=== PATIENT | female | born 1990 | race African-American/Black ===

== ENCOUNTER 2016-10-27 19:34 | Inpatient (IN) | payer MEDICAID ==
[~2016-10-27] VITALS: Ht 180.3 cm; Wt 114.0 kg
[~2016-10-27 19:34] MED LIST: NOCURR; PREN1TAB80 PO
[2016-10-27] MEDS ORDERED: MORPHINE SULFATE 4 MG/ML SYRINGE IVP ONE (19:45)
[2016-10-27] MEDS ORDERED: ONDANSETRON HCL 4 MG/2 ML VIAL IVP ONE (19:45)
[2016-10-27] MEDS ORDERED: ACETAMINOPHEN 325 MG TABLET PO PRN (20:15)
[2016-10-27] MEDS ORDERED: MetroNIDAZOLE 500 MG/NACL 100 ML IV ONE (20:15)
[2016-10-27] MEDS ORDERED: DOXYCYCLINE 100 MG in DEXTROSE 5%-WATER 100 ML IV ONE (20:15)
[2016-10-27] MEDS ORDERED: 0.9% SODIUM CHLORIDE 10 ML SYRINGE IVP PRN (20:15)
[2016-10-27] MEDS ORDERED: ONDANSETRON HCL 4 MG/2 ML VIAL IVP PRN (20:15)
[2016-10-27 20:34] LABS: INR 0.9 (0.9-1.1); PROTHROMBIN TIME 9.6 SEC (9.4-11.6)
[2016-10-27] MEDS ORDERED: SODIUM CHLORIDE 0.9% 0 ML IV ONE (21:28)
[2016-10-27 21:34] VITALS: BP 103/63
[2016-10-27] MEDS ORDERED: MORPHINE SULFATE 4 MG/ML SYRINGE IVP PRN (21:45)
[2016-10-27] MEDS ORDERED: SODIUM CHLORIDE 0.9% 1,000 ML IV SCH (21:45)
[2016-10-27] MEDS ORDERED: METHYLERGONOVINE MALEATE 0.2 MG TABLET PO ONE (22:00)
[2016-10-28 00:13] VITALS: BP 129/71
[2016-10-28 06:33] LABS: BASOPHILS % (AUTO) 0.2 % (0.0-2.0); EOSINOPHILS % (AUTO) 0.8 % (1.0-6.0); HEMATOCRIT 28.4 % (36-46); HEMOGLOBIN 9.6 g/dL (12.0-16.0); LYMPHOCYTES # (AUTO) 2.2 K/uL (1.0-4.8); MEAN CORPUSCULAR HEMOGLOBIN 30.3 pg (26.0-34.0); MEAN CORPUSCULAR HGB CONC 33.6 G/dL (31.0-37.0); MEAN CORPUSCULAR VOLUME 90 fL (80-100); MONOCYTES # (AUTO) 0.6 K/uL (0.1-1.0); MONOCYTES % (AUTO) 4.2 % (2.0-9.0); NEUTROPHILS # (AUTO) 11.6 K/uL (1.8-7.7); NEUTROPHILS % (AUTO) 79.8 % (40.0-70.0); PLATELET COUNT (AUTO) 222 K/uL (150-450); RED BLOOD CELL COUNT(AUTO) 3.15 MIL/uL (4.00-5.20); RED CELL DISTRIBUTION WIDTH 13.5 % (11.5-14.5); WHITE BLOOD COUNT (AUTO) 14.5 K/uL (4.5-11.0)
[2016-10-28 06:45] VITALS: BP 105/54
[2016-10-28 08:02] VITALS: BP 102/59
[2016-10-28] MEDS ORDERED: OXYGEN THERAPY IH SCH (09:09)
[2016-10-28] MEDS ORDERED: FentaNYL CITRATE-PF 100 MCG/2 ML VIAL IVP PRN (09:15)
[2016-10-28] MEDS ORDERED: MEPERIDINE-PF 25 MG/ML SYRINGE IVP PRN (09:15)
[2016-10-28] MEDS ORDERED: HYDROmorphone 2 MG/ML SYRINGE IVP PRN (09:15)
[2016-10-28] MEDS ORDERED: SODIUM CHLORIDE 0.9% 500 ML IV ONE (09:21)
[2016-10-28] MEDS ORDERED: RINGERS SOLUTION,LACTATED 1,000 ML IV ONE (09:40)
[2016-10-28] MEDS ORDERED: SILVER NITRATE APPLICATOR 1 EA STICK TP ONE (09:40)
[2016-10-28] MEDS ORDERED: DOXYCYCLINE 100 MG in DEXTROSE 5%-WATER 100 ML IV ONE (10:00)
[2016-10-28] MEDS ORDERED: DOXYCYCLINE 100 MG CAPSULE PO ONE (10:30)
[2016-10-28] MEDS ORDERED: HYDROCODONE/ACETAMINOPHEN 5-325 MG TABLET PO PRN (10:30)
[2016-10-28] MEDS ORDERED: MEPERIDINE-PF 25 MG/ML SYRINGE ONE (10:41)
[2016-10-28] MEDS ORDERED: IPRATROPIUM BROMIDE 0.5 MG/2.5 ML NEB SOLUTION NEB ONE (10:45)
[2016-10-28] MEDS ORDERED: ALBUTEROL SULFATE 2.5 MG/0.5 ML NEB SOLUTION NEB ONE ×2 (10:45→10:46)
[2016-10-28] MEDS ORDERED: HYDROmorphone 2 MG/ML SYRINGE ONE (10:48)
[2016-10-28] MEDS ORDERED: IBUPROFEN 600 MG TABLET PO SCH (12:00)
[2016-10-28] MEDS ORDERED: IBUP-2070 PO (12:46)
[2016-10-28] MEDS ORDERED: HYDR-309 PO ×2 (12:47→12:48)
[2016-10-28] MEDS ORDERED: METR500 PO (12:49)
[2016-10-28] MEDS ORDERED: DOXY150T PO (12:49)
[2016-10-28] MEDS ORDERED: [UNRECOGNIZED DRUG - CODE] PO (12:52)
[2016-10-28 13:09] VITALS: BP 96/63
[2016-10-28] MEDS ORDERED: METOCLOPRAMIDE HCL 5 MG/ML 2 ML VIAL IVP ONE (17:59)
[2016-10-28] MEDS ORDERED: ONDANSETRON HCL 4 MG/2 ML VIAL IVP ONE (17:59)
[2016-10-28] MEDS ORDERED: MIDAZOLAM HCL 2 MG/2 ML VIAL IVP ONE (17:59)
[2016-10-28] MEDS ORDERED: KETOROLAC TROMETHAMINE 60 MG/2 ML VIAL IM ONE (17:59)
[2016-10-28] MEDS ORDERED: PROPOFOL 1% 20 ML VIAL IVP ONE (17:59)
[2016-10-28] MEDS ORDERED: FentaNYL CITRATE-PF 100 MCG/2 ML VIAL IVP ONE (17:59)
[2016-10-28] MEDS ORDERED: SUCCINYLCHOLINE CHLORIDE 20 MG/ML 10 ML VIAL IVP ONE (17:59)
[2016-10-28] MEDS ORDERED: LIDOCAINE HCL/PF 2% 5 ML VIAL INJ ONE (17:59)
[2016-10-28] MEDS ORDERED: DEXAMETHASONE SOD PHOS 4 MG/ML VIAL IVP ONE (17:59)
== END 2016-10-28 18:00 | disposition home or self-care (01) | DRG 544 ==
LOC: EMS 19:40 → 6N 20:25
PROVIDERS: ADMIT Obstetrics & Gynecology; ATTEND Obstetrics & Gynecology
PROC: 10D17ZZ Extraction of Products of Conception, Retained, Via Natural or Artificial Opening (ICD-10-PCS; principal; 2016-10-27)
DX: O03.1 Delayed or excessive hemorrhage following incomplete spontaneous abortion (principal); O72.0 Third-stage hemorrhage; Z3A.12 12 weeks gestation of pregnancy
CPT/HCPCS: 76817; 87081; 88300; 88305; 94640; 96374; 96375; 99285; J0330; J1100; J1170; J1885; J2175; J2250; J2270; J2405; J2704; J2765; J3010; J3490; J7030; J7040; J7060; J7120

== ENCOUNTER 2017-06-18 01:17 | Emergency (ER) | payer MEDICAID ==
[~2017-06-18] VITALS: Ht 157.5 cm; Wt 113.0 kg
[~2017-06-18 01:17] MED LIST changes: +DOXY150T PO; +HYDR-309 PO; +IBUP-2070 PO; +METR500 PO; -NOCURR; -PREN1TAB80 PO; +[UNRECOGNIZED DRUG - CODE] PO
[2017-06-18] MEDS ORDERED: ALBU8HFA IH (01:25)
[2017-06-18 03:48] VITALS: BP 134/78
== END 2017-06-18 03:51 | disposition home or self-care (01) ==
LOC: EMS 01:18
DX: J06.9 Acute upper respiratory infection, unspecified (principal); J40 Bronchitis, not specified as acute or chronic; J45.909 Unspecified asthma, uncomplicated; F17.210 Nicotine dependence, cigarettes, uncomplicated
CPT/HCPCS: 99283; 99406

== ENCOUNTER 2020-10-11 22:07 | Emergency (ER) | payer MEDICAID ==
[~2020-10-11] VITALS: Ht 157.5 cm; Wt 113.6 kg
[~2020-10-11 22:07] MED LIST changes: +ALBU8HFA IH; -DOXY150T PO; -HYDR-309 PO; -IBUP-2070 PO; -METR500 PO; -[UNRECOGNIZED DRUG - CODE] PO
[2020-10-11 23:23] VITALS: BP 135/76
== END 2020-10-11 23:36 | disposition home or self-care (01) ==
LOC: EMS 22:07
DX: L02.01 Cutaneous abscess of face (principal); F17.210 Nicotine dependence, cigarettes, uncomplicated; F12.90 Cannabis use, unspecified, uncomplicated
CPT/HCPCS: 99283; 99406

== ENCOUNTER 2020-10-14 22:00 | Emergency (ER) | payer MEDICAID ==
[~2020-10-14] VITALS: Ht 154.9 cm; Wt 100.5 kg
[2020-10-15] MEDS ORDERED: LIDOCAINE 1%/EPI 1:200,000/PF 10 ML VIAL SQ ONE (00:45)
[2020-10-15] MEDS ORDERED: BACITRACIN 0.9 GM PACKET OINTMENT TP ONE (00:45)
[2020-10-15 02:00] VITALS: BP 133/86
== END 2020-10-15 02:05 | disposition home or self-care (01) ==
LOC: EMS 22:14
DX: L02.01 Cutaneous abscess of face (principal); F17.210 Nicotine dependence, cigarettes, uncomplicated; F12.90 Cannabis use, unspecified, uncomplicated
CPT/HCPCS: 10061; 99284; J3490

== ENCOUNTER 2020-10-26 20:06 | Emergency (ER) | payer MEDICAID ==
[~2020-10-26] VITALS: Ht 157.5 cm; Wt 104.5 kg
[2020-10-27] VITALS: BP 122/79
[2020-10-27] MEDS ORDERED: LIDOCAINE 2%/EPI 1:200,000/PF 10 ML VIAL ID ONE (00:30)
[2020-10-27] MEDS ORDERED: HYDROCODONE/ACETAMINOPHEN 10-325 MG TABLET PO ONE (00:30)
[2020-10-27] MEDS ORDERED: IBUPROFEN 800 MG TABLET PO ONE (00:30)
[2020-10-27 00:46] LABS: BASOPHILS % (AUTO) 0.6 % (0.0-2.0); EOSINOPHILS % (AUTO) 1.3 % (1.0-6.0); HEMATOCRIT 35.8 % (36-46); HEMOGLOBIN 11.7 g/dL (12.0-16.0); LYMPHOCYTES # (AUTO) 2.9 K/uL (1.0-4.8); LYMPHOCYTES % (AUTO) 20.3 % (22.0-44.0); MEAN CORPUSCULAR HEMOGLOBIN 29.9 pg (26.0-34.0); MEAN CORPUSCULAR HGB CONC 32.7 G/dL (31.0-37.0); MEAN CORPUSCULAR VOLUME 92 fL (80-100); MONOCYTES # (AUTO) 0.8 K/uL (0.1-1.0); MONOCYTES % (AUTO) 5.3 % (2.0-9.0); NEUTROPHILS # (AUTO) 10.5 K/uL (1.8-7.7); NEUTROPHILS % (AUTO) 72.5 % (40.0-70.0); PLATELET COUNT (AUTO) 269 K/uL (150-450); RED CELL DISTRIBUTION WIDTH 13.4 % (11.5-14.5)
[2020-10-27 00:58] LABS: PROTHROMBIN TIME 10.2 SEC (9.4-11.6)
[2020-10-27] MEDS ORDERED: LIDOCAINE 1%/EPI 1:200,000/PF 10 ML VIAL SQ ONE (01:00)
[2020-10-27 01:08] LABS: ANION GAP 8 mmol/L (8-16); CARBON DIOXIDE 26 mmol/L (22-29); CHLORIDE 106 mmol/L (98-107); CREATININE 0.66 mg/dL (0.60-1.30); GLOMERULAR FILTR. RATE CALC > 60 mL/min (>60); GLUCOSE,RANDOM 99 mg/dL (70-110); POTASSIUM 3.6 mmol/L (3.5-5.1); SODIUM SERUM 140 mmol/L (136-145); UREA NITROGEN, BLOOD 10 mg/dL (7-18)
[2020-10-27 01:12] LABS: ALANINE AMINOTRANSFERASE 24 U/L (12-78); ALBUMIN 2.7 g/dL (3.4-5.0); ALKALINE PHOSPHATASE 73 U/L (46-116); ASPARTATE AMINOTRANSFERASE 14 U/L (15-37); BILIRUBIN,TOTAL 0.3 mg/dL (0.1-1.0); TOTAL PROTEIN, SERUM 6.5 g/dL (6.4-8.2)
[2020-10-27 01:17] LABS: LACTIC ACID 0.7 mmol/L (0.4-2.0)
[2020-10-27] MEDS ORDERED: CEPHALEXIN MONOHYDRATE 500 MG CAPSULE PO ONE (02:15)
[2020-10-27] MEDS ORDERED: SULFAMETHOX/TRIMETH DS 800-160 MG/TABLET PO ONE (02:15)
[2020-10-27] MEDS ORDERED: HYDROCODONE/ACETAMINOPHEN 5-325 MG TABLET PO ONE (02:30)
== END 2020-10-27 02:15 | disposition home or self-care (01) ==
LOC: EMS 20:08
DX: L02.414 Cutaneous abscess of left upper limb (principal); L73.2 Hidradenitis suppurativa; F17.210 Nicotine dependence, cigarettes, uncomplicated; F12.90 Cannabis use, unspecified, uncomplicated; R79.1 Abnormal coagulation profile
CPT/HCPCS: 10060; 36415; 80053; 83605; 85025; 85610; 87070; 99284; J3490

== ENCOUNTER 2020-10-30 00:20 | Emergency (ER) | payer MEDICAID ==
[~2020-10-30] VITALS: Ht 157.5 cm; Wt 104.5 kg
[2020-10-30 02:27] VITALS: BP 129/69
== END 2020-10-30 03:07 | disposition home or self-care (01) ==
LOC: EMS 00:23
DX: L73.2 Hidradenitis suppurativa (principal); F17.210 Nicotine dependence, cigarettes, uncomplicated; F12.90 Cannabis use, unspecified, uncomplicated; Z48.00 Encounter for change or removal of nonsurgical wound dressing
CPT/HCPCS: 99281; Z7502

== ENCOUNTER 2020-11-15 20:47 | Emergency (ER) | payer MEDICAID ==
[~2020-11-15] VITALS: Ht 157.5 cm; Wt 109.1 kg
[2020-11-15] MEDS ORDERED: DIPHENOXYLATE/ATROP 2.5-0.025 MG TABLET PO ONE (21:45)
[2020-11-15] MEDS ORDERED: ONDANSETRON HCL 4 MG TABLET PO ONE (21:45)
[2020-11-15] MEDS ORDERED: ACETAMINOPHEN 500 MG TABLET PO ONE (21:45)
[2020-11-15 22:32] LABS: COVID AG,FIA SOURCE NASOPHARYNGEAL
[2020-11-15 22:34] LABS: BASOPHILS % (AUTO) 0.9 % (0.0-2.0); EOSINOPHILS % (AUTO) 0.3 % (1.0-6.0); HEMATOCRIT 34.8 % (36-46); HEMOGLOBIN 11.4 g/dL (12.0-16.0); LYMPHOCYTES # (AUTO) 2.2 K/uL (1.0-4.8); LYMPHOCYTES % (AUTO) 25.4 % (22.0-44.0); MEAN CORPUSCULAR HEMOGLOBIN 30.1 pg (26.0-34.0); MEAN CORPUSCULAR HGB CONC 32.8 G/dL (31.0-37.0); MEAN CORPUSCULAR VOLUME 92 fL (80-100); MONOCYTES # (AUTO) 0.7 K/uL (0.1-1.0); MONOCYTES % (AUTO) 8.7 % (2.0-9.0); NEUTROPHILS # (AUTO) 5.5 K/uL (1.8-7.7); NEUTROPHILS % (AUTO) 64.7 % (40.0-70.0); PLATELET COUNT (AUTO) 262 K/uL (150-450); RED CELL DISTRIBUTION WIDTH 13.4 % (11.5-14.5)
[2020-11-15 22:47] LABS: ANION GAP 8 mmol/L (8-16); CALCIUM, TOTAL 8.3 mg/dL (8.8-10.5); CARBON DIOXIDE 25 mmol/L (22-29); CHLORIDE 106 mmol/L (98-107); CREATININE 0.81 mg/dL (0.60-1.30); GLOMERULAR FILTR. RATE CALC > 60 mL/min (>60); GLUCOSE,RANDOM 88 mg/dL (70-110); POTASSIUM 3.5 mmol/L (3.5-5.1); SODIUM SERUM 139 mmol/L (136-145); UREA NITROGEN, BLOOD 5 mg/dL (7-18)
[2020-11-15 22:58] LABS: ALANINE AMINOTRANSFERASE 14 U/L (12-78); ALBUMIN 2.9 g/dL (3.4-5.0); ALKALINE PHOSPHATASE 72 U/L (46-116); ASPARTATE AMINOTRANSFERASE 12 U/L (15-37); BILIRUBIN,TOTAL 0.4 mg/dL (0.1-1.0); HCG,QUANTITATIVE 1 mIU/mL (0-6); LIPASE 40 U/L (73-393); TOTAL PROTEIN, SERUM 6.7 g/dL (6.4-8.2)
[2020-11-15] MEDS ORDERED: KETOROLAC TROMETHAMINE 60 MG/2 ML VIAL IM ONE (23:15)
[2020-11-16 00:47] VITALS: BP 121/71
== END 2020-11-16 00:54 | disposition home or self-care (01) ==
LOC: EMS 20:47
DX: R50.9 Fever, unspecified (principal); R51.9 Headache, unspecified; M79.10 Myalgia, unspecified site; F17.210 Nicotine dependence, cigarettes, uncomplicated; F12.90 Cannabis use, unspecified, uncomplicated; Z20.822 Contact with and (suspected) exposure to COVID-19
CPT/HCPCS: 36415; 80053; 83690; 84702; 85025; 87426; 96372; 99285; J1885; Q0162; U0003; 99284

== ENCOUNTER 2020-11-23 14:41 | Emergency (ER) | payer MEDICAID ==
[~2020-11-23] VITALS: Ht 157.5 cm; Wt 104.5 kg
[2020-11-23 15:40] VITALS: BP 115/64
== END 2020-11-23 15:43 | disposition home or self-care (01) ==
LOC: EMS 14:47
DX: N63.0 Unspecified lump in unspecified breast (principal); F17.210 Nicotine dependence, cigarettes, uncomplicated; F12.90 Cannabis use, unspecified, uncomplicated
CPT/HCPCS: 99283; Z7502

== ENCOUNTER 2021-01-13 20:13 | Emergency (ER) | payer MEDICAID ==
[~2021-01-13] VITALS: Ht 157.5 cm; Wt 113.6 kg
[2021-01-13 20:35] VITALS: BP 103/77
[2021-01-13] MEDS ORDERED: NYSTATIN 15 GM POWDER BOTTLE TP ONE (21:00)
== END 2021-01-13 21:19 | disposition home or self-care (01) ==
LOC: EMS 20:15
DX: L30.4 Erythema intertrigo (principal); B37.9 Candidiasis, unspecified; F17.210 Nicotine dependence, cigarettes, uncomplicated; F12.90 Cannabis use, unspecified, uncomplicated
CPT/HCPCS: 99283

== ENCOUNTER 2021-04-08 03:16 | Emergency (ER) | payer MEDICAID ==
[~2021-04-08] VITALS: Ht 157.5 cm; Wt 113.6 kg
[2021-04-08 03:30] VITALS: BP 128/42
[2021-04-08] MEDS ORDERED: PredniSONE 20 MG TABLET PO ONE (03:30)
[2021-04-08] MEDS ORDERED: DiphenhydrAMINE HCL 25 MG CAPSULE PO ONE (03:30)
== END 2021-04-08 03:49 | disposition home or self-care (01) ==
LOC: EMS 03:19
DX: T78.40XA Allergy, unspecified, initial encounter (principal); F12.90 Cannabis use, unspecified, uncomplicated; F17.210 Nicotine dependence, cigarettes, uncomplicated; Z79.899 Other long term (current) drug therapy; X58.XXXA Exposure to other specified factors, initial encounter
CPT/HCPCS: 99283; J7512

== ENCOUNTER 2021-05-13 00:37 | Emergency (ER) | payer MEDICAID ==
[~2021-05-13] VITALS: Ht 157.5 cm; Wt 104.5 kg
[2021-05-13 07:04] VITALS: BP 98/71
[2021-05-13] MEDS ORDERED: IBUP-2088 PO (07:22)
[2021-05-13] MEDS ORDERED: CEPH500C3 PO (07:22)
[2021-05-13] MEDS ORDERED: BACTDSB PO (07:22)
== END 2021-05-13 07:39 | disposition home or self-care (01) ==
LOC: EMS 00:40
DX: L02.01 Cutaneous abscess of face (principal); F12.90 Cannabis use, unspecified, uncomplicated; F17.210 Nicotine dependence, cigarettes, uncomplicated
CPT/HCPCS: 99283; Z7502

== ENCOUNTER 2021-09-09 23:14 | Emergency (ER) | payer MEDICAID ==
[~2021-09-09] VITALS: Ht 157.5 cm; Wt 113.6 kg
[~2021-09-09 23:14] MED LIST changes: -ALBU8HFA IH; +BACTDSB PO; +CEPH-558 PO; +IBUP-2088 PO
[2021-09-10] MEDS ORDERED: CefTRIAXone 1 GM/DEXTROSE 50 ML IV ONE (03:15)
[2021-09-10] MEDS ORDERED: LIDOCAINE 1% 10 ML VIAL SQ ONE (03:15)
[2021-09-10] MEDS ORDERED: ONDANSETRON HCL 4 MG/2 ML VIAL IVP ONE (03:15)
[2021-09-10] MEDS ORDERED: DOXYCYCLINE HYCLATE 100 MG TABLET PO ONE (03:15)
[2021-09-10] MEDS ORDERED: MORPHINE SULFATE 4 MG/ML SYRINGE IVP ONE (03:15)
[2021-09-10 03:44] LABS: BASOPHILS % (AUTO) 0.9 % (0.0-2.0); EOSINOPHILS % (AUTO) 0.5 % (1.0-6.0); HEMATOCRIT 35.7 % (36-46); HEMOGLOBIN 11.8 g/dL (12.0-16.0); LYMPHOCYTES # (AUTO) 2.7 K/uL (1.0-4.8); LYMPHOCYTES % (AUTO) 16.5 % (22.0-44.0); MEAN CORPUSCULAR HEMOGLOBIN 30.2 pg (26.0-34.0); MEAN CORPUSCULAR HGB CONC 33.1 G/dL (31.0-37.0); MEAN CORPUSCULAR VOLUME 91 fL (80-100); MONOCYTES % (AUTO) 6.3 % (2.0-9.0); NEUTROPHILS # (AUTO) 12.3 K/uL (1.8-7.7); NEUTROPHILS % (AUTO) 75.8 % (40.0-70.0); PLATELET COUNT (AUTO) 292 K/uL (150-450); RED BLOOD CELL COUNT(AUTO) 3.91 MIL/uL (4.00-5.20); RED CELL DISTRIBUTION WIDTH 13.5 % (11.5-14.5)
[2021-09-10 03:54] LABS: ANION GAP 9 mmol/L (8-16); CALCIUM, TOTAL 7.9 mg/dL (8.8-10.5); CARBON DIOXIDE 23 mmol/L (22-29); CHLORIDE 103 mmol/L (98-107); CREATININE 0.75 mg/dL (0.60-1.30); GLOMERULAR FILTR. RATE CALC > 60 mL/min (>60); GLUCOSE,RANDOM 117 mg/dL (70-110); POTASSIUM 3.5 mmol/L (3.5-5.1); SODIUM SERUM 135 mmol/L (136-145); UREA NITROGEN, BLOOD 7 mg/dL (7-18)
[2021-09-10 03:59] LABS: ALANINE AMINOTRANSFERASE 13 U/L (12-78); ALBUMIN 2.9 g/dL (3.4-5.0); ALKALINE PHOSPHATASE 78 U/L (46-116); ASPARTATE AMINOTRANSFERASE 7 U/L (15-37); BILIRUBIN,TOTAL 0.5 mg/dL (0.1-1.0); TOTAL PROTEIN, SERUM 6.8 g/dL (6.4-8.2)
[2021-09-10] MEDS ORDERED: CEPH-558 PO (04:35)
[2021-09-10] MEDS ORDERED: TRI2515C TP (04:35)
[2021-09-10] MEDS ORDERED: DOXY-354 PO (04:35)
[2021-09-10] MEDS ORDERED: ACET-2080 PO (04:35)
[2021-09-10 05:00] VITALS: BP 135/71
== END 2021-09-10 05:37 | disposition home or self-care (01) ==
LOC: EMS 23:16
DX: L02.31 Cutaneous abscess of buttock (principal); L30.9 Dermatitis, unspecified; F12.90 Cannabis use, unspecified, uncomplicated; F17.210 Nicotine dependence, cigarettes, uncomplicated; Z79.899 Other long term (current) drug therapy; Z20.2 Contact with and (suspected) exposure to infections with a predominantly sexual mode of transmission
CPT/HCPCS: 10060; 36415; 80053; 85025; 87491; 87591; 96365; 96375; 99284; J0696; J2270; J2405; J3490

== ENCOUNTER 2021-10-05 21:44 | Emergency (ER) | payer MEDICAID ==
[~2021-10-05] VITALS: Ht 157.5 cm; Wt 107.7 kg
[~2021-10-05 21:44] MED LIST changes: +ACET-2080 PO; +DOXY-354 PO; +TRI2515C TP
[2021-10-05 22:53] VITALS: BP 125/90
[2021-10-05] MEDS ORDERED: LIDOCAINE/PF 1% 5 ML VIAL ID ONE (23:00)
[2021-10-05] MEDS ORDERED: LIDOCAINE 1% 10 ML VIAL ID ONE (23:00)
[2021-10-05] MEDS ORDERED: SULF-261 PO (23:21)
[2021-10-05] MEDS ORDERED: ACET-66 PO (23:21)
== END 2021-10-05 23:56 | disposition home or self-care (01) ==
LOC: EMS 21:46
DX: H60.01 Abscess of right external ear (principal); F10.20 Alcohol dependence, uncomplicated; F12.90 Cannabis use, unspecified, uncomplicated; F17.210 Nicotine dependence, cigarettes, uncomplicated; Z88.6 Allergy status to analgesic agent
CPT/HCPCS: 10160; 99284; J2001

== ENCOUNTER 2021-11-12 10:05 | Emergency (ER) | payer MEDICAID ==
[~2021-11-12] VITALS: Ht 157.5 cm; Wt 104.5 kg
[~2021-11-12 10:05] MED LIST changes: +ACET-66 PO; +SULF-261 PO
[2021-11-12] MEDS ORDERED: HYDROCODONE/ACETAMINOPHEN 10-325 MG TABLET PO ONE (11:15)
[2021-11-12 11:19] VITALS: BP 128/62
[2021-11-12] MEDS ORDERED: LIDOCAINE 1% 10 ML VIAL ID ONE (11:30)
[2021-11-12] MEDS ORDERED: SULF-261 PO (11:59)
== END 2021-11-12 12:09 | disposition home or self-care (01) ==
LOC: EMS 10:05
DX: N61.1 Abscess of the breast and nipple (principal); F12.90 Cannabis use, unspecified, uncomplicated; F17.210 Nicotine dependence, cigarettes, uncomplicated; Z88.8 Allergy status to other drugs, medicaments and biological substances; Z79.899 Other long term (current) drug therapy
CPT/HCPCS: 99283; 10060; 36415; J3490

== ENCOUNTER 2022-01-02 10:40 | Emergency (ER) | payer MEDICAID ==
[~2022-01-02] VITALS: Ht 157.5 cm; Wt 109.1 kg
[~2022-01-02 10:40] MED LIST changes: -ACET-2080 PO; -ACET-66 PO; -BACTDSB PO; -CEPH-558 PO; -DOXY-354 PO; -IBUP-2088 PO; -TRI2515C TP
[2022-01-02] MEDS ORDERED: POVIDONE-IODINE 10% 15 ML SOLUTION UD TP ONE (13:45)
[2022-01-02] MEDS ORDERED: LIDOCAINE 1% 10 ML VIAL PERC ONE (13:45)
[2022-01-02 13:56] VITALS: BP 108/64
[2022-01-02] MEDS ORDERED: AMOX1TAB16 PO (14:09)
== END 2022-01-02 15:07 | disposition home or self-care (01) ==
LOC: EMS 10:40
DX: K61.1 Rectal abscess (principal); F17.210 Nicotine dependence, cigarettes, uncomplicated; F12.90 Cannabis use, unspecified, uncomplicated; Z86.19 Personal history of other infectious and parasitic diseases; Z98.890 Other specified postprocedural states; Z88.8 Allergy status to other drugs, medicaments and biological substances
CPT/HCPCS: 46040; 99284; J3490; 10160

== ENCOUNTER 2022-01-18 19:47 | Emergency (ER) | payer MEDICAID ==
[~2022-01-18] VITALS: Ht 157.5 cm; Wt 100.0 kg
[~2022-01-18 19:47] MED LIST changes: +AMOX1TAB16 PO; -SULF-261 PO
[2022-01-18] MEDS ORDERED: CLINDAMYCIN HCL 150 MG CAPSULE PO ONE (23:00)
[2022-01-18] MEDS ORDERED: ACETAMINOPHEN 500 MG TABLET PO ONE (23:00)
[2022-01-18] MEDS ORDERED: CLOT15CR29 TP (23:01)
[2022-01-18] MEDS ORDERED: CLIN300C58 PO (23:01)
[2022-01-18 23:11] VITALS: BP 136/75
== END 2022-01-18 23:19 | disposition home or self-care (01) ==
LOC: EMS 19:47
DX: N61.1 Abscess of the breast and nipple (principal); B35.3 Tinea pedis; F10.20 Alcohol dependence, uncomplicated; F12.10 Cannabis abuse, uncomplicated; F17.210 Nicotine dependence, cigarettes, uncomplicated
CPT/HCPCS: 99283

== ENCOUNTER 2022-03-19 21:39 | Emergency (ER) | payer MEDICAID ==
[~2022-03-19] VITALS: Ht 157.5 cm; Wt 100.0 kg
[~2022-03-19 21:39] MED LIST changes: +CLIN300C58 PO; +CLOT15CR29 TP
[2022-03-20] MEDS ORDERED: CEPH-558 PO (02:25)
[2022-03-20] MEDS ORDERED: BACTDSB PO (02:25)
[2022-03-20] MEDS ORDERED: TRAM-559 PO (02:25)
[2022-03-20] MEDS ORDERED: SULFAMETHOX/TRIMETH DS 800-160 MG/TABLET PO ONE (02:30)
[2022-03-20] MEDS ORDERED: CEPHALEXIN MONOHYDRATE 500 MG CAPSULE PO ONE (02:30)
[2022-03-20] MEDS ORDERED: TraMADol HCL 50 MG TABLET PO ONE (02:30)
[2022-03-20] MEDS ORDERED: LIDOCAINE/PF 1% 5 ML VIAL ONE (02:39)
[2022-03-20 05:48] VITALS: BP 125/75
== END 2022-03-20 05:50 | disposition home or self-care (01) ==
LOC: EMS 21:40
DX: N61.1 Abscess of the breast and nipple (principal); F10.20 Alcohol dependence, uncomplicated; F12.90 Cannabis use, unspecified, uncomplicated; F17.210 Nicotine dependence, cigarettes, uncomplicated
CPT/HCPCS: 99284; 10060; J2001

== ENCOUNTER 2022-04-30 21:38 | Emergency (ER) | payer MEDICAID, OTHER ==
[~2022-04-30] VITALS: Ht 157.5 cm; Wt 93.0 kg
[~2022-04-30 21:38] MED LIST changes: +BACTDSB PO; +CEPH-558 PO; +TRAM-559 PO
[2022-04-30] MEDS ORDERED: LIDOCAINE 1% 10 ML VIAL SQ ONE (23:00)
[2022-05-01] VITALS: BP 116/63
[2022-05-01] MEDS ORDERED: TraMADol HCL 50 MG TABLET PO ONE
[2022-05-01] MEDS ORDERED: CLINDAMYCIN HCL 150 MG CAPSULE PO ONE
[2022-05-01] MEDS ORDERED: CLIN300C58 PO (00:01)
== END 2022-05-01 00:15 | disposition home or self-care (01) ==
LOC: EMS 21:39
DX: L02.01 Cutaneous abscess of face (principal); F17.210 Nicotine dependence, cigarettes, uncomplicated; F12.90 Cannabis use, unspecified, uncomplicated; Z90.89 Acquired absence of other organs
CPT/HCPCS: 99283; 10060; 81025; J3490

== ENCOUNTER 2022-09-04 00:10 | Emergency (ER) | payer OTHER ==
[~2022-09-04] VITALS: Ht 152.4 cm; Wt 113.6 kg
[2022-09-04 00:20] VITALS: BP 102/64
[2022-09-04] MEDS ORDERED: DOXY-354 PO (12:43)
[2022-09-04] MEDS ORDERED: METR500 PO (15:47)
[2022-09-04] MEDS ORDERED: HYDR-4400 PO (15:49)
== END 2022-09-04 01:46 | disposition left against medical advice (07) ==
LOC: EMS 00:11
DX: Z53.21 Procedure and treatment not carried out due to patient leaving prior to being seen by health care provider (principal)
CPT/HCPCS: 99281; Z7502

== ENCOUNTER 2022-09-04 09:03 | Emergency (ER) | payer OTHER ==
[~2022-09-04] VITALS: Ht 157.5 cm; Wt 95.5 kg
[2022-09-04 12:14] LABS: APPEARANCE,URINE CLEAR (CLEAR); BILIRUBIN,URINE NEGATIVE (NEGATIVE); GLUCOSE, URINE (UA) NEGATIVE (NEGATIVE); KETONES,URINE NEGATIVE (NEGATIVE); LEUKOCYTE ESTERASE ,URINE NEGATIVE (NEGATIVE); NITRATE,URINE NEGATIVE (NEGATIVE); OCCULT BLOOD,URINE NEGATIVE (NEGATIVE); PROTEIN,URINE NEGATIVE (NEGATIVE); SPECIFIC GRAVITIY, URINE 1.027 (1.003-1.030); UROBILINOGEN,URINE <=1.0 mg/dL (<=1.0)
[2022-09-04 12:26] LABS: SQUAMOUS EPITHELIAL CELL,UR Few /LPF (None Seen)
[2022-09-04 12:27] LABS: BACTERIA,URINE None Seen /HPF (None Seen); RBC,URINE None Seen /HPF (0-2); WBC,URINE None Seen /HPF (0-5)
[2022-09-04] MEDS ORDERED: DOXY-354 PO (12:43)
[2022-09-04] MEDS ORDERED: CefTRIAXone SODIUM 1 GM/VIAL IM ONE (12:45)
[2022-09-04] MEDS ORDERED: DOXYCYCLINE HYCLATE 100 MG TABLET PO ONE (12:45)
[2022-09-04] MEDS ORDERED: LIDOCAINE/PF 1% 2 ML VIAL IM ONE (12:45)
[2022-09-04 14:30] VITALS: BP 130/84
[2022-09-04] MEDS ORDERED: METR500 PO (15:47)
[2022-09-04] MEDS ORDERED: HYDR-4400 PO (15:49)
== END 2022-09-04 14:31 | disposition home or self-care (01) ==
LOC: EMS 09:04
DX: N61.1 Abscess of the breast and nipple (principal); N72 Inflammatory disease of cervix uteri; N76.0 Acute vaginitis; F17.210 Nicotine dependence, cigarettes, uncomplicated; F12.90 Cannabis use, unspecified, uncomplicated; Z98.890 Other specified postprocedural states
CPT/HCPCS: 99283; 81001; 84703; 87210; 87491; 87591; 96372; J0696; J3490

== ENCOUNTER 2023-11-04 22:46 | Emergency (ER) | payer OTHER ==
[~2023-11-04] VITALS: Ht 157.5 cm; Wt 100.0 kg
[~2023-11-04 22:46] MED LIST changes: -AMOX1TAB16 PO; -BACTDSB PO; -CEPH-558 PO; -CLIN300C58 PO; -CLOT15CR29 TP; +DOXY-354 PO; +HYDR-4400 PO; +METR500 PO; -TRAM-559 PO
[2023-11-04 23:04] VITALS: TEMP 98.4
[2023-11-05 01:47] LABS: APPEARANCE,URINE CLEAR (CLEAR); BILIRUBIN,URINE NEGATIVE (NEGATIVE); COLOR,URINE YELLOW (YELLOW); GLUCOSE, URINE (UA) NEGATIVE (NEGATIVE); KETONES,URINE NEGATIVE (NEGATIVE); LEUKOCYTE ESTERASE ,URINE TRACE (NEGATIVE); NITRATE,URINE NEGATIVE (NEGATIVE); OCCULT BLOOD,URINE NEGATIVE (NEGATIVE); PROTEIN,URINE NEGATIVE (NEGATIVE); SPECIFIC GRAVITIY, URINE 1.028 (1.003-1.030); UROBILINOGEN,URINE <=1.0 mg/dL (<=1.0)
[2023-11-05 01:54] LABS: HCG,QUAL URINE NEGATIVE (NEGATIVE)
[2023-11-05 02:02] LABS: BASOPHILS % (AUTO) 0.6 % (0.0-2.0); EOSINOPHILS % (AUTO) 2.9 % (1.0-6.0); HEMATOCRIT 38.5 % (36-46); HEMOGLOBIN 12.6 g/dL (12.0-16.0); LYMPHOCYTES % (AUTO) 35.7 % (22.0-44.0); MEAN CORPUSCULAR HEMOGLOBIN 30.6 pg (26.0-34.0); MEAN CORPUSCULAR HGB CONC 32.7 G/dL (31.0-37.0); MEAN CORPUSCULAR VOLUME 94 fL (80-100); MONOCYTES # (AUTO) 0.7 K/uL (0.1-1.0); NEUTROPHILS # (AUTO) 6.2 K/uL (1.8-7.7); NEUTROPHILS % (AUTO) 54.8 % (40.0-70.0); PLATELET COUNT (AUTO) 293 K/uL (150-450); RED BLOOD CELL COUNT(AUTO) 4.11 MIL/uL (4.00-5.20); RED CELL DISTRIBUTION WIDTH 13.1 % (11.5-14.5); WHITE BLOOD COUNT (AUTO) 11.2 K/uL (4.5-11.0)
[2023-11-05 02:06] LABS: BACTERIA,URINE Few /HPF (None Seen); RBC,URINE 0-2 /HPF (0-2)
[2023-11-05 02:11] LABS: ANION GAP 7 mmol/L (8-16); CALCIUM, TOTAL 8.6 mg/dL (8.8-10.5); CARBON DIOXIDE 26 mmol/L (22-29); CHLORIDE 104 mmol/L (98-107); CREATININE 0.77 mg/dL (0.60-1.30); GLOMERULAR FILTR. RATE CALC > 60 mL/min (>60); GLUCOSE,RANDOM 92 mg/dL (70-110); POTASSIUM 4.1 mmol/L (3.5-5.1); SODIUM SERUM 137 mmol/L (136-145); UREA NITROGEN, BLOOD 12 mg/dL (7-18)
[2023-11-05] MEDS: CefTRIAXone SODIUM 1 GM/VIAL IM ONE (02:25)
[2023-11-05] MEDS: DOXYCYCLINE HYCLATE 100 MG TABLET PO ONE (02:25)
[2023-11-05] MEDS: LIDOCAINE/PF 1% 2 ML VIAL IM ONE (02:25)
[2023-11-05 02:27] LABS: PREGNANCY RESULT, SERUM NEGATIVE (NEGATIVE)
[2023-11-05 02:40] LABS: RAPID PLASMA REAGIN NONREACTIVE (NONREACTIVE)
[2023-11-05 04:05] VITALS: BP 119/59; PULSE 72; RESP 18
[2023-11-05] MEDS ORDERED: CEPH-558 PO (04:13)
[2023-11-05] MEDS ORDERED: DOXY-354 PO (04:13)
[2023-11-06 04:06] LABS: HIV 1-2 SCREEN 4TH GEN W/RFLX Non Reactive (Non Reactive)
== END 2023-11-05 04:28 | disposition home or self-care (01) ==
LOC: EMS 22:46
DX: N76.2 Acute vulvitis (principal); F17.210 Nicotine dependence, cigarettes, uncomplicated; F12.90 Cannabis use, unspecified, uncomplicated; Z98.890 Other specified postprocedural states
CPT/HCPCS: 99284; 86592; 80048; 81001; 85025; 87210; 36415; 87389; 96372; 84703; J0696; J3490; 87491; 87591; 99283

== ENCOUNTER 2023-12-29 08:59 | Emergency (ER) | payer OTHER ==
[~2023-12-29] VITALS: Ht 157.5 cm; Wt 100.0 kg
[~2023-12-29 08:59] MED LIST changes: +CEPH-558 PO
[2023-12-29] MEDS: LIDOCAINE 1% 10 ML VIAL ID ONE (10:00)
[2023-12-29] MEDS: SULFAMETHOX/TRIMETH DS 800-160 MG/TABLET PO ONE (10:00)
[2023-12-29] MEDS: HYDROCODONE/ACETAMINOPHEN 5-325 MG TABLET PO ONE (10:00)
[2023-12-29] MEDS: CEPHALEXIN MONOHYDRATE 500 MG CAPSULE PO ONE (10:00)
[2023-12-29 10:06] VITALS: BP 137/47; PULSE 89; RESP 20; TEMP 98.7; O2SAT 100
[2023-12-29] MEDS ORDERED: CEPH-558 PO (10:27)
[2023-12-29] MEDS ORDERED: SULF-261 PO (10:27)
[2023-12-29] MEDS ORDERED: HYDR-4062 PO (10:27)
[2023-12-29] MEDS ORDERED: HYDR-4072 PO (10:38)
== END 2023-12-29 10:44 | disposition home or self-care (01) ==
LOC: EMS 08:59
DX: N61.1 Abscess of the breast and nipple (principal); F17.210 Nicotine dependence, cigarettes, uncomplicated; F12.90 Cannabis use, unspecified, uncomplicated
CPT/HCPCS: 99284; 10060; J3490

== ENCOUNTER 2023-12-31 09:43 | Emergency (ER) | payer OTHER ==
[~2023-12-31] VITALS: Ht 157.5 cm; Wt 100.0 kg
[~2023-12-31 09:43] MED LIST changes: -DOXY-354 PO; +HYDR-4072 PO; -HYDR-4400 PO; -METR500 PO; +SULF-261 PO
[2023-12-31 09:59] VITALS: TEMP 98.7
[2023-12-31] MEDS: KETOROLAC TROMETHAMINE 30 MG/ML VIAL IM ONE (11:46)
[2023-12-31 12:17] VITALS: BP 121/78; PULSE 77; RESP 20; O2SAT 100
== END 2023-12-31 12:17 | disposition home or self-care (01) ==
LOC: EMS 09:43
DX: N61.1 Abscess of the breast and nipple (principal); Z48.00 Encounter for change or removal of nonsurgical wound dressing; F17.210 Nicotine dependence, cigarettes, uncomplicated; F12.90 Cannabis use, unspecified, uncomplicated
CPT/HCPCS: 99283; 96372; J1885

== ENCOUNTER 2024-02-10 03:31 | Emergency (ER) | payer OTHER ==
[~2024-02-10] VITALS: Ht 157.5 cm; Wt 100.0 kg
[2024-02-10 03:36] VITALS: BP 118/59; PULSE 75; RESP 20; TEMP 97.9; O2SAT 100
[2024-02-10 04:28] LABS: COVID AG,FIA SOURCE NASAL SWAB
[2024-02-10] MEDS: IBUPROFEN 400 MG TABLET PO ONE (04:43)
[2024-02-10] MEDS: ACETAMINOPHEN 325 MG TABLET PO ONE (04:43)
[2024-02-10 05:08] LABS: SARS-COV2 (COVID) ANTIGEN,FIA Negative (Negative)
[2024-02-10 05:09] LABS: INFLUENZA TYPE A NEGATIVE FOR TYPE A (NEGATIVE); INFLUENZA TYPE B NEGATIVE FOR TYPE B (NEGATIVE)
== END 2024-02-10 05:37 | disposition home or self-care (01) ==
LOC: EMS 03:32
DX: J06.9 Acute upper respiratory infection, unspecified (principal); F17.210 Nicotine dependence, cigarettes, uncomplicated; F12.90 Cannabis use, unspecified, uncomplicated; Z98.890 Other specified postprocedural states; Z20.822 Contact with and (suspected) exposure to COVID-19
CPT/HCPCS: 87804; 99283

== ENCOUNTER 2024-12-03 13:32 | Emergency (ER) | payer OTHER ==
[~2024-12-03] VITALS: Ht 165.1 cm; Wt 90.9 kg
[2024-12-03 13:50] VITALS: TEMP 98.2
[2024-12-03 14:11] LABS: COVID AG,FIA SOURCE NASAL SWAB
[2024-12-03 14:41] LABS: INFLUENZA TYPE A NEGATIVE FOR TYPE A (NEGATIVE); INFLUENZA TYPE B NEGATIVE FOR TYPE B (NEGATIVE)
[2024-12-03 14:55] LABS: SARS-COV2 (COVID) ANTIGEN,FIA Negative (Negative)
[2024-12-03 15:30] VITALS: BP 110/84; PULSE 78; RESP 17; O2SAT 99
[2024-12-03 15:39] LABS: PLATELET COUNT (AUTO) 241 K/uL (150-450); RED BLOOD CELL COUNT(AUTO) 3.85 MIL/uL (4.00-5.20); RED CELL DISTRIBUTION WIDTH 13.4 % (11.5-14.5); WHITE BLOOD COUNT (AUTO) 7.7 K/uL (4.5-11.0)
[2024-12-03 15:44] LABS: CALCIUM, TOTAL 8.5 mg/dL (8.8-10.5); CREATININE 0.80 mg/dL (0.60-1.30); GLOMERULAR FILTR. RATE CALC > 60 mL/min (>60); GLUCOSE,RANDOM 68 mg/dL (70-110); SODIUM SERUM 140 mmol/L (136-145); UREA NITROGEN, BLOOD 6 mg/dL (7-18)
[2024-12-03 15:49] LABS: ASPARTATE AMINOTRANSFERASE 14 U/L (15-37); TOTAL PROTEIN, SERUM 6.6 g/dL (6.4-8.2)
[2024-12-03] MEDS: ACETAMINOPHEN 500 MG TABLET PO ONE (15:57)
[2024-12-03] MEDS: IBUPROFEN 600 MG TABLET PO ONE (15:57)
[2024-12-03] MEDS: CefTRIAXone SODIUM 1 GM/VIAL IM ONE (16:22)
[2024-12-03] MEDS: LIDOCAINE/PF 1% 2 ML VIAL IM ONE (16:22)
[2024-12-03] MEDS: DOXYCYCLINE HYCLATE 100 MG TABLET PO ONE (16:22)
[2024-12-03] MEDS ORDERED: DOXY-354 PO (17:04)
[2024-12-03] MEDS ORDERED: CEPH-558 PO (17:04)
[2024-12-03] MEDS ORDERED: METR500 PO (17:04)
== END 2024-12-03 17:21 | disposition home or self-care (01) ==
LOC: EMS 13:37
DX: L02.411 Cutaneous abscess of right axilla (principal); L02.31 Cutaneous abscess of buttock; N76.0 Acute vaginitis; F12.90 Cannabis use, unspecified, uncomplicated; F17.210 Nicotine dependence, cigarettes, uncomplicated; Z98.890 Other specified postprocedural states; Z11.3 Encounter for screening for infections with a predominantly sexual mode of transmission; Z29.9 Encounter for prophylactic measures, unspecified; Z20.822 Contact with and (suspected) exposure to COVID-19
CPT/HCPCS: 99284; 71045; 87426; 86592; 80053; 84703; 85025; 87210; 87804; 36415; 87491; 87591; 96372; 87389; J0696 ×2; J3490; J7060

== ENCOUNTER 2024-12-30 21:29 | Emergency (ER) | payer OTHER ==
[~2024-12-30] VITALS: Ht 157.5 cm; Wt 220.0 kg
[~2024-12-30 21:29] MED LIST changes: +DOXY-354 PO; -HYDR-4072 PO; +METR500 PO; -SULF-261 PO
[2024-12-30 21:49] VITALS: TEMP 98
[2024-12-30 22:09] LABS: COVID AG,FIA SOURCE NASAL SWAB
[2024-12-30 22:37] LABS: INFLUENZA TYPE A NEGATIVE FOR TYPE A (NEGATIVE); INFLUENZA TYPE B NEGATIVE FOR TYPE B (NEGATIVE); SARS-COV2 (COVID) ANTIGEN,FIA Negative (Negative)
[2024-12-30 23:17] VITALS: BP 128/86; PULSE 71; RESP 16; O2SAT 99
== END 2024-12-30 23:26 | disposition home or self-care (01) ==
LOC: EMS 21:30
DX: J06.9 Acute upper respiratory infection, unspecified (principal); B97.89 Other viral agents as the cause of diseases classified elsewhere; F17.210 Nicotine dependence, cigarettes, uncomplicated; F12.90 Cannabis use, unspecified, uncomplicated; Z98.890 Other specified postprocedural states; Z20.822 Contact with and (suspected) exposure to COVID-19; Z79.899 Other long term (current) drug therapy
CPT/HCPCS: 87804; 99283

== ENCOUNTER 2025-01-11 08:33 | Emergency (ER) | payer OTHER ==
[~2025-01-11] VITALS: Ht 157.5 cm; Wt 110.0 kg
[2025-01-11 08:44] VITALS: TEMP 97.5
[2025-01-11] MEDS: FLUCONAZOLE 150 MG TABLET PO ONE (12:17)
[2025-01-11 12:36] VITALS: BP 142/77; PULSE 96; RESP 18; O2SAT 100
== END 2025-01-11 12:46 | disposition home or self-care (01) ==
LOC: EMS 08:33
DX: B37.9 Candidiasis, unspecified (principal); L29.9 Pruritus, unspecified; F12.90 Cannabis use, unspecified, uncomplicated; F17.210 Nicotine dependence, cigarettes, uncomplicated
CPT/HCPCS: 99283